=== PATIENT | male | born 1995 | race Two or more races ===

== ENCOUNTER 2020-12-27 12:45 | Emergency (ER) | payer OTHER ==
[~2020-12-27] VITALS: Ht 193 cm; Wt 80.9 kg
[2020-12-27] MEDS ORDERED: ONDA4TAB6 PO (15:18)
[2020-12-27] MEDS ORDERED: FAMOTIDINE 20 MG TAB PO ONE (15:20)
[2020-12-27] MEDS ORDERED: ONDANSETRON 4 MG ORAL DISINTEGRATING TAB PO ONE (15:20)
[2020-12-27 15:21] VITALS: BP 122/60
== END 2020-12-27 15:46 | disposition home or self-care (01) ==
LOC: M ED 12:45
DX: K29.00 Acute gastritis without bleeding (principal); F10.129 Alcohol abuse with intoxication, unspecified; F17.210 Nicotine dependence, cigarettes, uncomplicated
CPT/HCPCS: 99283; Q0162